=== PATIENT | male | born 1980 | race Hispanic/Latino ===

== ENCOUNTER 2016-08-14 23:28 | Emergency (ER) | payer OTHER ==
[~2016-08-14] VITALS: Ht 180.3 cm; Wt 93.3 kg
[~2016-08-14 23:28] MED LIST: CATAPRES0.1 MG PO; DELTASONE20 M1 PO; MELOXICAM7.5 MG PO; NORCO 5/3251 TABLET PO; ULTRACET1 TABLET PO
[2016-08-15] MEDS ORDERED: NAPROXEN500 MG PO (00:35)
[2016-08-15 00:47] VITALS: BP 141/88
== END 2016-08-15 00:47 | disposition home or self-care (01) ==
LOC: EME 23:28
DX: S90.31XA Contusion of right foot, initial encounter (principal); W20.8XXA Other cause of strike by thrown, projected or falling object, initial encounter
CPT/HCPCS: 73630; 99281; 99283